=== PATIENT | male | born 2000 | race African-American/Black ===

== ENCOUNTER 2024-06-01 17:38 | Emergency (ER) | payer BC, MEDICAID ==
[2024-06-01] MEDS ORDERED: Bupivacaine PF 0.5% 30 ML VIAL ONE (19:28)
[2024-06-01] MEDS ORDERED: HYDROcodone/Acetaminophen 5/325 mg Tablet ONE (19:28)
== END 2024-06-01 21:09 | disposition home or self-care (01) ==
LOC: ERS 17:38
DX: K02.9 Dental caries, unspecified (principal); K04.7 Periapical abscess without sinus; M27.2 Inflammatory conditions of jaws
CPT/HCPCS: 64400; J0665